=== PATIENT | male | born 1960 | race Caucasian/White ===

== ENCOUNTER → 2021-03-12 | Outpatient (CLI) | payer OTHER ==
[~2021-03-12] MED LIST: IOHEXOL 300 MG/ML 75 ML VIAL. IV ONE
--- NOTE | 2021-03-12 16:54 | RAD ---
CT of the chest with contrast 03/12/2021 INDICATION: Ectasia of the thoracic aorta COMPARISON STUDY: None TECHNIQUE: Multidetector CT imaging of the chest was performed following the administration of contra st. FINDINGS: Borderline cardiomegaly noted. No pericardial effusion is identified. No pathologically enl arged mediastinal lymph nodes are seen. There is ectasia of the ascending thoracic aorta measuring up to 4 cm the level the main pulmonary ar stephen. The aortic arch and descending thoracic aorta are normal in caliber. A direct origin of the lef t vertebral artery from the aortic arch is noted. No evidence of dissection is seen. Limited visualiz ation of the upper abdomen demonstrates no acute abnormality. No pneumothorax, pleural effusion, or f ocal acute infiltrate is identified. No acute osseous changes are seen. IMPRESSION: 1. 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 2. No acute cardiopulmonary process is identified CT DOSING PQRS STATEMENT: One or more of the following individualized dose reduction techniques were utilized for this examinat ion: 1. Automated exposure control 2. Adjustment of the mA and/or kV according to patient size 3. Use of iterative reconstruction technique Electronically signed by: Ryder Escoto MD (03/12/2021 4:52 PM) [id number]
== END ==
LOC: CT 15:03
PROVIDERS: ATTEND Nurse Practitioner Family
DX: I77.810 Thoracic aortic ectasia (principal); I51.7 Cardiomegaly
CPT/HCPCS: 71260; Q9967

== ENCOUNTER → 2021-11-05 | Outpatient (CLI) | payer OTHER ==
--- NOTE | 2021-11-05 17:04 | RAD ---
CT THORAX WO History: Lung nodule. Comparison: 03/12/2021 Technique: Noncontrast CT of the chest. Findings: Assessment is limited by lack of IV contrast. Cardiovascular: Ascending aortic ectasia measuring 4.1 cm at the level of the right pulmonary artery. Mild calcification. Mild coronary artery calcification. Coarse calcifications at the aortic valve. H eart size is normal. No pericardial effusions. Mediastinum and humaira: No adenopathy. Unremarkable thyroid and esophagus. Airways, lungs and pleura: The central airways are patent. No airspace consolidation. There is a 4 mm right major fissure nodule, unchanged from comparison consistent with benign fissural lymph node. Th ere is an unchanged 2 mm left upper lobe pulmonary nodule Upper abdomen: Limited evaluation of the upper abdomen is unremarkable. Osseous structures and soft tissues: Within normal limits for age. Impression: 1. No pulmonary nodules including a 4 mm right major fissural nodule which most likely represents be nign fissural lymph node and 2 mm left upper lobe nodule. Both demonstrate greater than six-month sta bility. 2. Heavy calcification at the aortic valve and mild ascending aortic ectasia measuring 4.1 cm. 3. Mild coronary artery calcification. ------ Exposure: One or more of the following individualized dose reduction techniques were utilized for thi s examination: 1. Automated exposure control 2. Adjustment of the mA and/or kV according to patient size 3. Use of iterative reconstruction technique. Electronically signed by: Stan Duran MD (11/05/2021 5:01 PM) [id number]
== END ==
LOC: CT 14:43
PROVIDERS: ATTEND Nurse Practitioner
DX: R91.1 Solitary pulmonary nodule (principal); I25.10 Atherosclerotic heart disease of native coronary artery without angina pectoris; I77.810 Thoracic aortic ectasia
CPT/HCPCS: 71250